=== PATIENT | female | born 1950 | race Caucasian/White ===

== ENCOUNTER 2021-08-26 09:23 | Day surgery (SDC) | payer OTHER, SELFPAY ==
--- NOTE | 2021-08-24 12:46 | HO.ANESPROP2 ---
Documented by User: Sarah Lockett NP 08/24/21 13:21 HPI - Anesthesia Eval Consult details Narrative: 71yo F for Upper Endoscopy and Colonoscopy Cleared by pulmo and cardiology at elevated risk. Case reviewed with Dr Ribeiro ILD, O2 dependant [facility] Past Medical History Medical History (Updated 08/24/21 @ 13:17 by Sarah Lockett NP) Aspiration pneumonia Asthma Bipolar disorder Breast cancer GERD (gastroesophageal reflux disease) Hiatal hernia HLD (hyperlipidemia) Hypothyroid Hypoxia ILD (interstitial lung disease) Microcytic hypochromic anemia Mitral regurgitation Oxygen dependent PTSD (post-traumatic stress disorder) Social History Social History Patient Tobacco Use Status: Former Tobacco user Are you DNR?: No Advance Directives: No Advance Directives Information Provided: Yes Recently lost weight without trying: Yes How much weight loss: Unsure Meds Allergies Allergy/AdvReac Type Severity Reaction Status Date / Time oxcarbazepine Allergy Unknown Unknown Verified 08/24/21 13:21 [From Trileptal] Sulfa (Sulfonamide Allergy Unknown Unknown Verified 08/24/21 13:21 Antibiotics) erythromycin base Allergy Unknown Verified 08/24/21 13:21 Home Medications Medication Instructions Recorded Confirmed Last Taken Type amoxicillin 500 mg tablet 1 tab PO TID 08/25/21 08/25/21 Unknown History amoxicillin 875 mg-potassium tab PO 08/25/21 Unknown History clavulanate 125 mg tablet anastrozole 1 mg tablet 1 tab PO DAILY 08/25/21 08/25/21 Unknown History ascorbic acid (vitamin C) 500 mg 1 tab PO DAILY PRN unknwon 08/25/21 08/25/21 Unknown History chewable tablet (Vitamin C) buspirone 15 mg tablet 1 tab PO BID 08/25/21 08/25/21 08/26/21 History cholecalciferol (vitamin D3) 25 1 cap PO DAILY 08/25/21 08/25/21 08/26/21 History mcg (1,000 unit) capsule fluticasone propionate 250 ea inhalation 08/25/21 Unknown History mcg/actuation blister powder for inhalation (Flovent Diskus) furosemide 20 mg tablet tab PO 08/25/21 Unknown History ipratropium 0.5 mg-albuterol 3 mg ml inhalation 08/25/21 Unknown History (2.5 mg base)/3 mL nebulization soln lamotrigine 200 mg tablet 1 tab PO BID 08/25/21 08/25/21 08/26/21 History levothyroxine 75 mcg tablet 1 tab PO DAILY 08/25/21 08/25/21 08/26/21 History lurasidone 120 mg tablet (Latuda) 1 tab PO BEDTIME 08/25/21 08/25/21 Unknown History omeprazole 20 mg capsule,delayed 1 cap PO BID 08/25/21 08/25/21 08/26/21 History release pirfenidone 267 mg tablet (Esbriet) 3 tab PO Q8H PRN unknown 08/25/21 08/25/21 Unknown History polysaccharide iron complex 150 mg 1 cap PO BID 08/25/21 08/25/21 Unknown History iron capsule prazosin 2 mg capsule 1 cap PO BEDTIME 08/25/21 08/25/21 Unknown History prednisone 10 mg tablet tab PO 08/25/21 Unknown History prednisone 20 mg tablet 1 tab PO BID 08/25/21 08/25/21 Unknown History sertraline 100 mg tablet 1 tab PO BID 08/25/21 08/25/21 Unknown History simvastatin 20 mg tablet 1 tab PO BEDTIME 08/25/21 08/25/21 Unknown History trazodone 100 mg tablet 1 tab PO BEDTIME 08/25/21 08/25/21 Unknown History albuterol sulfate 90 mcg/actuation 2 puff inhalation Q4-6H PRN 08/26/21 08/26/21 08/26/21 History aerosol inhaler (ProAir HFA) Wheezing Exam Exam Date and Time: August 24, 2021 1246 Narrative Narrative: Per cardiac note 07/20/21 Pharm stress 1 year ago was negative for ischemia or infarct Echo showed no change in comparison to her prior ECHO: EF 60-65%m grade II diastolic dysfunction, severe MR Assessment and Plan Assessment Anesthesia Assessment: Chart Reviewed Documented by User: Bairon Bryant MD 08/26/21 10:17 [facility] Past Medical History Medical History (Updated 08/24/21 @ 13:17 by Sarah Lockett NP) Aspiration pneumonia Asthma Bipolar disorder Breast cancer GERD (gastroesophageal reflux disease) Hiatal hernia HLD (hyperlipidemia) Hypothyroid Hypoxia ILD (interstitial lung disease) Microcytic hypochromic anemia Mitral regurgitation Oxygen dependent PTSD (post-traumatic stress disorder) Family History Family history of problems with anesthesia: No Surgical History History of Problems with Anesthesia: No Social History Social History Patient Tobacco Use Status: Former Tobacco user Are you DNR?: No Advance Directives: No Advance Directives Information Provided: Yes Recently lost weight without trying: Yes How much weight loss: Unsure Meds Allergies Allergy/AdvReac Type Severity Reaction Status Date / Time oxcarbazepine Allergy Unknown Unknown Verified 08/24/21 13:21 [From Trileptal] Sulfa (Sulfonamide Allergy Unknown Unknown Verified 08/24/21 13:21 Antibiotics) erythromycin base Allergy Unknown Verified 08/24/21 13:21 Home Medications Medication Instructions Recorded Confirmed Last Taken Type amoxicillin 500 mg tablet 1 tab PO TID 08/25/21 08/25/21 Unknown History amoxicillin 875 mg-potassium tab PO 08/25/21 Unknown History clavulanate 125 mg tablet anastrozole 1 mg tablet 1 tab PO DAILY 08/25/21 08/25/21 Unknown History ascorbic acid (vitamin C) 500 mg 1 tab PO DAILY PRN unknwon 08/25/21 08/25/21 Unknown History chewable tablet (Vitamin C) buspirone 15 mg tablet 1 tab PO BID 08/25/21 08/25/21 08/26/21 History cholecalciferol (vitamin D3) 25 1 cap PO DAILY 08/25/21 08/25/21 08/26/21 History mcg (1,000 unit) capsule fluticasone propionate 250 ea inhalation 08/25/21 Unknown History mcg/actuation blister powder for inhalation (Flovent Diskus) furosemide 20 mg tablet tab PO 08/25/21 Unknown History ipratropium 0.5 mg-albuterol 3 mg ml inhalation 08/25/21 Unknown History (2.5 mg base)/3 mL nebulization soln lamotrigine 200 mg tablet 1 tab PO BID 08/25/21 08/25/21 08/26/21 History levothyroxine 75 mcg tablet 1 tab PO DAILY 08/25/21 08/25/21 08/26/21 History lurasidone 120 mg tablet (Latuda) 1 tab PO BEDTIME 08/25/21 08/25/21 Unknown History omeprazole 20 mg capsule,delayed 1 cap PO BID 08/25/21 08/25/21 08/26/21 History release pirfenidone 267 mg tablet (Esbriet) 3 tab PO Q8H PRN unknown 08/25/21 08/25/21 Unknown History polysaccharide iron complex 150 mg 1 cap PO BID 08/25/21 08/25/21 Unknown History iron capsule prazosin 2 mg capsule 1 cap PO BEDTIME 08/25/21 08/25/21 Unknown History prednisone 10 mg tablet tab PO 08/25/21 Unknown History prednisone 20 mg tablet 1 tab PO BID 08/25/21 08/25/21 Unknown History sertraline 100 mg tablet 1 tab PO BID 08/25/21 08/25/21 Unknown History simvastatin 20 mg tablet 1 tab PO BEDTIME 08/25/21 08/25/21 Unknown History trazodone 100 mg tablet 1 tab PO BEDTIME 08/25/21 08/25/21 Unknown History albuterol sulfate 90 mcg/actuation 2 puff inhalation Q4-6H PRN 08/26/21 08/26/21 08/26/21 History aerosol inhaler (ProAir HFA) Wheezing Exam Airway Mallampati Class: II TM Dist: >3cm Neck ROM: Full Assessment and Plan Assessment Anesthesia Assessment: Anesthesia Plan Discussed Final Anesthetic Review Family History of Problems with Anesthesia: No History of Problems with Anesthesia: No NPO: Yes ASA Class: IV Final Preanesthetic Review: No Changes in Pt Med Stat, Meds/Allgs Chart Reviewed, Consent Obtained/Reviewed and Anes Risks/Benef Reviewed Patient Risk: Intermediate Procedure Risk: Low Anesthetic Plan Anesthetic Plan: MAC: Disposition: Standard PACU
--- NOTE | 2021-08-26 | ECG_ITS ---
Test Reason : rhythm chANGE Blood Pressure : / mmHG Vent. Rate : 070 BPM Atrial Rate : 070 BPM P-R Int : 200 ms QRS Dur : 090 ms QT Int : 408 ms P-R-T Axes : 027 -46 036 degrees QTc Int : 440 ms Normal sinus rhythm Left atrial enlargement Left axis deviation T wave abnormality, consider anterior ischemia Abnormal ECG No previous ECGs available Referred By: Sarah Lockett Electronically Signed By:Chi Dukes
[2021-08-26 08:31] VITALS: BMI 19.5
[2021-08-26 09:40] VITALS: BP 110/54; PULSE 101; RESP 24; TEMP 36.4; O2SAT 93
[2021-08-26 09:43] LABS: Hematocrit 34.9 % (37.0-47.0); Hemoglobin 10.6 g/dl (12.0-16.0); Mean Corpuscular HGB Conc 30.4 g/dl (31.0-35.0); Mean Corpuscular Hemoglobin 25.3 pg (27.0-33.0); Mean Corpuscular Volume 83.3 fL (80.0-98.0); Mean Platelet Volume 8.9 fL (9.4-12.3); Platelet Count 297 X10*3/uL (160-400); Red Blood Count 4.19 X10*6/uL (4.20-5.50); Red Cell Distribution Width 16.3 % (11.0-16.0); White Blood Count 6.7 X10*3/uL (4.8-10.8)
[2021-08-26] MEDS: Lactated Ringers 1,000 ML 50 ML IVCONT (09:45)
[2021-08-26 09:54] VITALS: O2SAT 97
[2021-08-26] MEDS: Albuterol Sulfate (0.083%) 2.5 MG/3 ML VIAL.NEB INHALE (10:05)
[2021-08-26 10:06] VITALS: PULSE 71; RESP 18; O2SAT 98
--- NOTE | 2021-08-26 10:10 | PC.NURSE ---
PT RECIEVING RESP TX FOR WHEEZING
--- NOTE | 2021-08-26 10:12 | P.HPSUR_ITS ---
Pre-Procedural Eval Section A Date of Service: 08/26/21 Section B Chief Complaint: Iron deficiency anemia, Details of Present Illness: see H& P no changes Relevant Family History (Specify if Yes): No Relevant Social History: None Present Medications: None Medical History: No relevant PMH History of Previous Operations: No relevant previous surgery Allergies: Allergies Allergy/AdvReac Type Severity Reaction Status Date / Time oxcarbazepine Allergy Unknown Unknown Verified 08/24/21 13:21 [From Trileptal] Sulfa (Sulfonamide Allergy Unknown Unknown Verified 08/24/21 13:21 Antibiotics) erythromycin base Allergy Unknown Verified 08/24/21 13:21 Review of Systems Sugical H&P ROS: Negative: Constitution, Cardiovascular, Respiratory, Neurological, Psychiatric, Hem-Onc, Allergic/Immunologic, Gastrointestinal, Genitourinary, Musculoskeletal, Integumentary, Endocrine and Eyes/Ears/Nose/Throat Exam Surgical H&P Exam: Normal: HEENT, Normal: Heart, Normal: Lungs, Normal: E xtremities, Normal: Abdomen, Normal: Skin and Normal: Neurological Plan Diagnosis/Plan: Unchanged I have reviewed the history and physical and performed a pertinent physical examination on my patient. No changes have occurred unless specified.
[2021-08-26 10:35] LABS: Anion Gap 12 (12-20); Blood Urea Nitrogen 8 mg/dL (9-16); Calcium 9.3 mg/dL (8.4-10.2); Carbon Dioxide 28 mmol/L (22-29); Chloride 102 mmol/L (96-108); Creatinine Clr Calc Pharmacy 45.4; Estimated Glomerular Filt Rate > 60; Glucose Fasting 91 mg/dL (60-99); Potassium 4.3 mmol/L (3.3-5.1); Sodium 138 mmol/L (135-145)
--- NOTE | 2021-08-26 11:00 | PM.OP ---
Brief Operative Note Date of Service: 08/26/21 Pre-op diagnosis: GILES,barretts,hiatal hernia Procedure: colonoscopy and egd Surgeon: Corby Gómez Anesthesia: MAC Was an Type Bar [employer] Segment [employer]er used for this Procedure?: No Estimated blood loss (mL): 5 Pathology: other (see req) Condition: stable Disposition: PACU
[2021-08-26 11:02] VITALS: BP 96/47; PULSE 88; RESP 20; TEMP 36.5; O2SAT 97
[2021-08-26 11:17] VITALS: BP 119/49; PULSE 74; RESP 20; TEMP 36.5; O2SAT 97
--- NOTE | 2021-08-26 11:46 | OP_ITS ---
SURGEON: Corby Gómez MD PREOPERATIVE DIAGNOSIS: POSTOPERATIVE DIAGNOSIS: PROCEDURE PERFORMED: ESTIMATED BLOOD LOSS: COMPLICATIONS: ANESTHESIA: Monitored anesthesia care. ASSISTANTS: SPECIMENS: PROCEDURES PERFORMED: 1. Colonoscopy to the terminal ileum. 2. Upper endoscopy with biopsy. INDICATION: Iron deficiency anemia. DESCRIPTION OF PROCEDURE: History and physical were performed. The risks and benefits of the procedure were explained to the patient. Informed consent was obtained. The patient was placed in the left lateral decubitus position. The digital rectal exam was performed and was found to be normal. The Olympus pediatric video colonoscope was introduced into the rectum and advanced to the cecum without difficulty. The cecum was identified by transillumination, palpation, and identification of ileocecal valve. Examination was performed and the scope was removed. She was repositioned for upper endoscopy. The Olympus video gastroscope was introduced into the esophagus, stomach and duodenum. Examination was performed. The scope was removed. She tolerated both procedures well and returned to recovery area in stable condition. FINDINGS: Colonoscopy: The terminal ileum was examined and appeared normal. The visualized colonic mucosa was normal. There was some retained stool in the right colon limiting sensitivity examination or detection of small polyps. This was washed and suctioned. No polyps were identified. There was mild diverticulosis. Retroflexed examination shows moderate sized internal hemorrhoids. Upper endoscopy: Esophagus: The esophagus showed a 6 cm area with Adams esophagus involving the distal esophagus. There were no raised lesions or ulcerated areas. Random biopsies were obtained and standard Adams surveillance was not undertaken due to the patient's comorbid conditions. There was a large hiatal hernia, it was approximately one-half to two-thirds of the stomach above the diaphragm. Stomach: Hiatal hernia as above, there were no masses, ulcers or polyps. Duodenum: The bulb and second portion were normal. Biopsies were obtained from the 2nd portion. IMPRESSION: 1. Normal colonoscopy. 2. Hiatal hernia. 3. Adams esophagus. RECOMMENDATIONS: 1. Follow up the biopsy results. 2. No further screening for colon cancer is recommended given the patient's age and comorbid conditions. MD VIJAYA Gramajo/ANEL / [id number]
== END 2021-08-26 12:18 | disposition home or self-care (01) ==
PROVIDERS: Nurse Practitioner; PCP Internal Medicine; Visit Provider Internal Medicine Gastroenterology
PROC: (CPT 45378; principal; 2021-08-26 10:10)
DX: D50.8 Other iron deficiency anemias (principal); K57.30 Diverticulosis of large intestine without perforation or abscess without bleeding; K64.8 Other hemorrhoids; K22.70 Barrett's esophagus without dysplasia; K44.9 Diaphragmatic hernia without obstruction or gangrene; K21.9 Gastro-esophageal reflux disease without esophagitis; J84.10 Pulmonary fibrosis, unspecified; J45.30 Mild persistent asthma, uncomplicated; Z99.81 Dependence on supplemental oxygen; F31.9 Bipolar disorder, unspecified; F43.10 Post-traumatic stress disorder, unspecified; Z85.3 Personal history of malignant neoplasm of breast; Z79.899 Other long term (current) drug therapy; Z79.82 Long term (current) use of aspirin; Z90.49 Acquired absence of other specified parts of digestive tract; Z88.1 Allergy status to other antibiotic agents; Z87.891 Personal history of nicotine dependence; Z88.2 Allergy status to sulfonamides; Z88.8 Allergy status to other drugs, medicaments and biological substances
CPT/HCPCS: 45378; 43239; 36415; 80048; 85027; 88305; 93005; 94640